=== PATIENT | female | born 1955 | race Caucasian/White ===

== ENCOUNTER 2016-03-30 13:35 | Day surgery (SDC) | payer OTHER ==
[~2016-03-30] VITALS: Ht 154.9 cm; Wt 64.3 kg
[~2016-03-30 13:35] MED LIST: ASPI325T4 PO
[2016-03-30] MEDS ORDERED: NAPROXEN (14:23)
[2016-03-30 14:25] VITALS: Ht 154.9 cm; Wt 64.3 kg
[2016-03-30 14:57] VITALS: BP 126/79; PULSE 88; RESP 18
[2016-03-30] MEDS ORDERED: LIDOCAINE 4% SOLUTION 50 ML BTL ONE (14:57)
[2016-03-30] MEDS ORDERED: FENTAnyl 50 MCG/ML VIAL ONE (15:38)
[2016-03-30] MEDS ORDERED: MIDAZOLAM 1 MG/ML 2 ML INJ ONE ×3 (15:44→15:50)
[2016-03-30 16:00] VITALS: BP 116/89; PULSE 76; RESP 18
--- NOTE | 2016-03-31 05:21 | GILP ---
DATE OF PROCEDURE: 03/30/2016 PREOPERATIVE DIAGNOSIS: Reflux symptoms with hepatitis C. The patient underwent upper endoscopy an d biopsy. POSTOPERATIVE DIAGNOSES: Erosive esophagitis grade II, LA classification B, and no varices. Hiatus hernia about medium size. Antral gastritis with nodularity. This area was biopsied. DESCRIPTION OF PROCEDURE: The patient was put in the left lateral decubitus after obtaining informe d consent. Posterior pharynx was anesthetized with 4% Xylocaine. Then she received 3 mg IV Versed, 75 mcg of fentanyl IV. Then I advanced the Olympus video upper endoscope easily into the esophagus, stomach and duodenum. The esophageal area in the distal esophagus showed erosive esophagitis grade I I, B LA classification hiatus hernia, medium size. In the stomach, there was mild gastritis but in t he antrum there was nodularity with some erosions and this was photographed and biopsies done. Duod enal bulb and first and second part normal. Then the scope was withdrawn. Patient had no complicat ion. Dear Dr. Grace Hicks: There were no varices; however, she does have erosive esophagitis, hiatus hernia. I would recommend she take omeprazole 20 mg every day. Recommend follow up in 6 weeks. Also see colonoscopy report. She was incomplete. This needs to be further evaluated. . Dictated By: BYRON ESTEVEZ Conf#: [id number] DID#: [id number] CC: Grace Hicks;*EndCC*
--- NOTE | 2016-03-31 05:24 | GILP ---
DATE OF PROCEDURE: 03/30/2016 PREOPERATIVE DIAGNOSIS: History of hepatitis C screening; colonoscopy attempted. POSTOPERATIVE DIAGNOSIS: Incomplete colonoscopy due to very poor prep and diverticulosis noted in t he sigmoid colon. DESCRIPTION OF PROCEDURE: The patient was put in left lateral decubitus after obtaining informed co nsent. Further sedation was done after EGD with Versed 1 mg and fentanyl 25. Rectal exam done. Then I advanced an Olympus video pediatric colonoscope to sigmoid colon due to large amount of solid sto ol. I could not visualize further and had to back out. A few diverticula noted. The scope was with drawn. FINAL IMPRESSION: Poor prep. Incomplete colonoscopy. Recommend barium enema or Cologuard and foll ow up as outpatient in 6 to 8 weeks. Dictated By: BYRON ESTEVEZ Conf#: [id number] DID#: [id number] CC: Grace Hicks;*EndCC*
== END 2016-03-30 15:49 | disposition home or self-care (01) ==
LOC: GIL 13:35
PROVIDERS: ATTEND Internal Medicine
DX: Z12.11 Encounter for screening for malignant neoplasm of colon (principal); K44.9 Diaphragmatic hernia without obstruction or gangrene; K57.90 Diverticulosis of intestine, part unspecified, without perforation or abscess without bleeding; K20.8 Other esophagitis; E78.5 Hyperlipidemia, unspecified; B19.20 Unspecified viral hepatitis C without hepatic coma
CPT/HCPCS: 43239; 45378; 88305; 88312; J2250; J3010; Z7610